=== PATIENT | female | born 1990 | race Caucasian/White ===

== ENCOUNTER 2021-03-07 10:03 | Inpatient (IN) | payer OTHER ==
[~2021-03-07] VITALS: Ht 165.1 cm; Wt 77.0 kg
[2021-03-07 10:34] VITALS: BP 103/49
[2021-03-07 11:27] LABS: BASO % 0.4 % (0.0-1.0); EOS # 0.2 10*3/uL (0.0-0.4); EOS % 2.7 % (1.0-4.0); HEMATOCRIT 39.1 % (37.0-47.0); LYMPH # 1.6 10*3/uL (1.3-4.4); LYMPH % 24.1 % (27.0-41.0); MEAN CELL VOLUME 87.9 fl (81.0-99.0); MEAN CORPUSCULAR HGB 30.3 pg (27.0-31.0); MEAN CORPUSCULAR HGB CONC 34.5 g/dl (33.0-37.0); MEAN PLATELET VOLUME 9.4 fl (9.6-12.3); MONO # 0.5 10*3/uL (0.1-1.0); MONO % 8.1 % (3.0-9.0); NEUT # 4.3 10*3/uL (2.3-7.9); NEUT % 64.6 % (47.0-73.0); PLATELET COUNT AUTOMATED 294 10*3/uL (130-400); RED BLOOD COUNT 4.45 10*6/uL (4.10-5.10); WHITE BLOOD COUNT 6.7 10*3/uL (4.8-10.8)
[2021-03-07 11:36] LABS: BILIRUBIN Negative (Negative); BLOOD Negative (Negative); CLARITY Clear (Clear); COLOR Yellow (Yellow); GLUCOSE Negative (Negative); KETONE Negative (Negative); LEUKO ESTERASE 1+ (Negative); NITRITE Negative (Negative); UROBILINOGEN 0.2 E.U./dl (0.0-1.0)
[2021-03-07 11:41] LABS: ALBUMIN 3.6 gm/dl (3.1-4.5); ALKALINE PHOSPHATASE 43 U/L (45-117); BUN 13 mg/dl (7-24); CHLORIDE 108 mmol/L (98-107); CREATININE 0.72 mg/dL (0.55-1.02); LIPASE 12 U/L (73-393); POTASSIUM 4.1 mmol/L (3.5-5.1); SGOT/AST 19 IU/L (3-35); SGPT/ALT 27 U/L (12-78); SODIUM 139 mmol/L (136-145); TOTAL PROTEIN 6.9 gm/dL (6.4-8.2)
[2021-03-07 11:43] LABS: B-hCG (QUALITATIVE) NEGATIVE (NEGATIVE)
[2021-03-07 11:48] LABS: ETHYL ALCOHOL < 3.0 mg/dl (<3)
[2021-03-07 11:48] LABS: URINE AMPHETAMINES < 1000 (1000ng/ml); URINE BARBITURATES < 200 (200ng/ml); URINE BENZODIAZEPINES < 200 (200ng/ml); URINE CANNABINOIDS (THC) > 50 (50ng/ml); URINE COCAINE < 300 (300ng/ml); URINE METHADONE < 300 (300ng/ml); URINE OPIATES < 300 (300ng/ml)
[2021-03-07 11:49] LABS: URINE PHENCYCLIDINE < 25 (25ng/ml)
[2021-03-07 11:52] LABS: BACTERIA 2+
[2021-03-07 11:56] VITALS: BP 118/55
[2021-03-07 13:39] VITALS: BP 110/56
[2021-03-07 14:00] VITALS: BP 110/56
[2021-03-07 16:00] VITALS: BP 120/59
[2021-03-07 20:00] VITALS: BP 128/76
[2021-03-08] VITALS: BP 114/65
[2021-03-08 08:00] VITALS: BP 122/82
[2021-03-08 12:00] VITALS: BP 112/75
[2021-03-08 16:00] VITALS: BP 128/69
[2021-03-08 20:00] VITALS: BP 125/65
[2021-03-09] VITALS: BP 114/66
[2021-03-09 08:00] VITALS: BP 125/78
== END 2021-03-09 10:57 | disposition left against medical advice (07) | DRG 770 ==
LOC: ED 10:03 → EDHOLD 12:13 → 5E 13:32
PROVIDERS: Internal Medicine; ADMIT Internal Medicine; ATTEND Internal Medicine
DX: F11.23 Opioid dependence with withdrawal (principal); F17.210 Nicotine dependence, cigarettes, uncomplicated; R73.9 Hyperglycemia, unspecified; F12.90 Cannabis use, unspecified, uncomplicated; N30.00 Acute cystitis without hematuria; Z53.29 Procedure and treatment not carried out because of patient's decision for other reasons; Z88.0 Allergy status to penicillin